=== PATIENT | male | born 1945 | race Two or more races ===

== ENCOUNTER 2016-05-26 04:19 | Inpatient (IN) | payer MEDICARE, OTHER ==
[~2016-05-26] VITALS: Ht 177.8 cm; Wt 99.8 kg
[2016-05-26 08:00] VITALS: BP_SYST 125; BP_SYST 144; BP_DIAS 65
[2016-05-26] MEDS ORDERED: ONDANSETRON HCL/PF 4 MG/2 ML VIAL IVP PRN (10:30)
[2016-05-26] MEDS ORDERED: ACETAMINOPHEN 650 MG/SUPP.RECT RC PRN (10:30)
[2016-05-26] MEDS: ASPIRIN 81 MG TAB.CHEW PO SCH (10:56)
[2016-05-26] MEDS: NICOTINE PATCH (21MG) 21 MG PATCH.TD24 TD SCH (10:56)
[2016-05-26] MEDS ORDERED: DEXTROSE 50%-WATER 50 ML DISP.SYRIN IV PRN (11:00)
[2016-05-26] MEDS ORDERED: ASPI-991 PO (11:19)
[2016-05-26] MEDS ORDERED: LINA5TAB PO (11:19)
[2016-05-26] MEDS ORDERED: ALBU8.5H2 INH (11:19)
[2016-05-26] MEDS ORDERED: BENA20TA2 PO (11:19)
[2016-05-26] MEDS ORDERED: METO25TA6 PO (11:19)
[2016-05-26] MEDS ORDERED: CANA300T PO (11:19)
[2016-05-26] MEDS ORDERED: GLIP1TAB6 PO (11:19)
[2016-05-26 11:32] LABS: THYROID STIMULATING HORMONE 3.653 uIU/mL (0.358-3.74)
[2016-05-26] MEDS: BLOOD SUGAR DIAGNOSTIC 1 EACH STRIP IN SCH ×3 (11:36→21:44)
[2016-05-26 12:00] VITALS: BP 139/64
[2016-05-26] MEDS ORDERED: BLOOD SUGAR DIAGNOSTIC 1 EACH STRIP IN SCH (12:00)
[2016-05-26] MEDS ORDERED: BLOOD SUGAR DIAGNOSTIC 1 EACH STRIP VI SCH (12:00)
[2016-05-26] MEDS: INSULIN REGULAR, HUMAN 100 UNIT/ML 3 ML VIAL SQ PRN ×2 (12:19→17:50)
[2016-05-26 16:00] VITALS: BP 137/51
[2016-05-26] MEDS: ALBUTEROL SULFATE 8 GM HFA.AER.AD IH SCH (17:48)
[2016-05-26 20:00] VITALS: BP 135/59
[2016-05-26] MEDS ORDERED: AGGRENOX(ASA/DIPYRIDAMOLE) 1 CAP CPMP.12HR PO SCH (21:00)
[2016-05-26] MEDS ORDERED: *INSULIN REGULAR(HUMULIN R)HUM 100 UNIT/ML VIAL SQ PRN (22:00)
[2016-05-26] MEDS ORDERED: SIMVASTATIN 20 MG TABLET PO SCH (22:00)
[2016-05-27] VITALS: BP 124/56
[2016-05-27 04:00] VITALS: BP 134/54
[2016-05-27 04:37] LABS: BASOPHILS % (AUTO) 0.4 % (0.0-2.0); DIFF TOTAL % 100 %; EOSINOPHILS # (AUTO) 0.1 /CMM (0.0-0.7); EOSINOPHILS % (AUTO) 1.4 % (0.0-6.0); HEMATOCRIT 44 % (39-51); HEMOGLOBIN 14.7 g/dL (13.5-17.5); LYMPHOCYTES # (AUTO) 2.4 /CMM (0.8-4.8); LYMPHOCYTES % (AUTO) 24.1 % (20.0-44.0); MEAN CORPUSCULAR HEMOGLOBIN 30 PG (26.0-33.0); MEAN CORPUSCULAR HGB CONC 34 g/dl (31.0-36.0); MEAN CORPUSCULAR VOLUME 89 fL (80-96); MONOCYTES # (AUTO) 0.5 /CMM (0.1-1.30); MONOCYTES % (AUTO) 4.7 % (2.0-12.0); NEUTROPHILS # (AUTO) 6.8 /CMM (1.8-8.9); NEUTROPHILS % (AUTO) 69.4 % (43.0-81.0); PLATELET COUNT (AUTO) 196 /CMM (150-450); RED BLOOD CELL COUNT(AUTO) 4.86 MIL/uL (4.5-6.0); WHITE BLOOD COUNT (AUTO) 9.9 K/uL (4.3-11.0)
[2016-05-27 04:55] LABS: ALANINE AMINOTRANSFERASE 15 U/L (12-78); ALBUMIN 3.2 g/dL (3.4-5.0); ANION GAP 11 (5-14); ASPARTATE AMINOTRANSFERASE 6 U/L (15-37); BILIRUBIN,TOTAL 0.4 mg/dL (0.2-1.0); CALCIUM, SERUM 8.2 mg/dL (8.5-10.1); CARBON DIOXIDE 27 mmol/L (21-32); CHLORIDE 107 mmol/L (98-107); CREATININE 1.1 mg/dL (0.6-1.3); GFR 66 mL/min (>60); GLUCOSE 171 mg/dL (74-106); PHOSPHORUS 3.2 mg/dL (2.5-4.9); SODIUM SERUM 141 mmol/L (136-145); TOTAL PROTEIN, SERUM 6.5 g/dL (6.4-8.2); UREA NITROGEN, BLOOD 20 mg/dL (7-18)
[2016-05-27 04:57] LABS: INR 0.93 (0.87-1.13)
[2016-05-27] MEDS: BLOOD SUGAR DIAGNOSTIC 1 EACH STRIP IN SCH ×2 (05:49→12:09)
[2016-05-27] MEDS: INSULIN REGULAR, HUMAN 100 UNIT/ML 3 ML VIAL SQ PRN ×2 (05:52→12:06)
[2016-05-27 06:19] LABS: *RAPID PLASMA REAGIN QUAL Non Reactive (Non Reactive)
[2016-05-27 07:51] LABS: CANNABINOID, URINE NEGATIVE (NEGATIVE); PHENCYCLIDINE SCREEN,URINE NEGATIVE (NEGATIVE)
[2016-05-27 08:00] VITALS: BP 128/65
[2016-05-27] MEDS: NICOTINE PATCH (21MG) 21 MG PATCH.TD24 TD SCH (08:44)
[2016-05-27] MEDS: ALBUTEROL SULFATE 8 GM HFA.AER.AD IH SCH (08:44)
[2016-05-27 08:45] VITALS: BP 128/65
[2016-05-27] MEDS: ASPIRIN 81 MG TAB.CHEW PO SCH (08:45)
[2016-05-27] MEDS ORDERED: ASPIRIN EC 81 MG TABLET.DR PO SCH (09:00)
[2016-05-27] MEDS ORDERED: DOCUSATE SODIUM 100 MG CAPSULE PO SCH (09:00)
[2016-05-27] MEDS ORDERED: BENAZEPRIL HCL 20 MG TABLET PO SCH (09:00)
[2016-05-27] MEDS ORDERED: PANTOPRAZOLE 40 MG TABLET.DR PO SCH (09:00)
[2016-05-27] MEDS ORDERED: METOPROLOL TARTRATE 25 MG TABLET PO SCH (09:00)
[2016-05-27] MEDS ORDERED: SIMV20TA6 PO (12:57)
[2016-05-27] MEDS ORDERED: NICO1PAT28 TD (12:57)
== END 2016-05-27 14:45 | disposition home or self-care (01) | DRG 69 ==
LOC: TELE 08:03 → MED 05-27 09:02
PROVIDERS: ADMIT Nurse Practitioner Acute Care; ATTEND Nurse Practitioner Acute Care
DX: G45.9 Transient cerebral ischemic attack, unspecified (principal); R47.01 Aphasia; I73.9 Peripheral vascular disease, unspecified; E78.5 Hyperlipidemia, unspecified; E11.42 Type 2 diabetes mellitus with diabetic polyneuropathy; E88.81 Metabolic syndrome and other insulin resistance; F17.210 Nicotine dependence, cigarettes, uncomplicated; E11.51 Type 2 diabetes mellitus with diabetic peripheral angiopathy without gangrene; Z71.6 Tobacco abuse counseling; H35.039 Hypertensive retinopathy, unspecified eye; E11.319 Type 2 diabetes mellitus with unspecified diabetic retinopathy without macular edema
CPT/HCPCS: 36415; 70450-TC; 80053-TC; 80061-TC; 80305; 82330; 82962-TC; 83735-TC; 83880; 84100-TC; 84443-TC; 84484-TC; 85025-TC; 85652-TC; 85730-TC; 86592; 87081-TC; 87086-TC; 92521; 92611-TC; 93307-TC; 93880-TC; 95819-TC; 97003-TC; G0480; J1815; Z7610